=== PATIENT | male | born 1980 | race African-American/Black ===

== ENCOUNTER 2021-02-16 18:57 | Emergency (ER) | payer SELFPAY ==
[2021-02-16] MEDS ORDERED: LIDOCAINE 1% MPF 5 ML VIAL ONE (21:33)
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
[2021-02-16 22:29] VITALS: BP 149/84; TEMP 98.2; O2SAT 98
== END 2021-02-16 22:08 | disposition home or self-care (01) ==
LOC: ER 18:57
PROC: 0JQG0ZZ Repair Right Lower Arm Subcutaneous Tissue and Fascia, Open Approach (ICD-10-PCS; principal; 2021-02-16)
DX: S51.811A Laceration without foreign body of right forearm, initial encounter (principal); W45.8XXA Other foreign body or object entering through skin, initial encounter
CPT/HCPCS: 99283

== ENCOUNTER 2022-04-19 17:46 | Emergency (ER) | payer OTHER, SELFPAY ==
[2022-04-19] MEDS ORDERED: NA CHLORIDE 0.9% 1,000 ML ONE (18:28)
[2022-04-19 18:36] LABS: Absolute Lymphocytes (CBC) 1.1 K/uL (0.7-4.9); Hematocrit 41.7 % (39.6-49.0); Lymphocytes % 21.9 % (15.3-44.8); MCV 90.3 fL (80-100); MPV 7.8 fL (7.6-11.3); RBC Red Blood Cell Count 4.62 M/uL (4.33-5.43)
[2022-04-19 18:41] LABS: Protime INR 0.96
[2022-04-19 18:53] LABS: BUN Blood Urea Nitrogen 10 mg/dL (7-18); Bicarbonate 27 mmol/L (21-32); Glomerular Filtration Rate 113 ml/min (=/>90); Glucose Level 102 mg/dL (74-106); Potassium 3.4 mmol/L (3.5-5.1); Sodium Level 140 mmol/L (136-145)
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
[2022-04-19] MEDS ORDERED: LEVETIRACETAM 500 MG/5 ML VIAL IV ONE (20:07)
[2022-04-19] MEDS ORDERED: ONDANSETRON 4 MG/2 ML VIAL ONE (20:08)
[2022-04-19] MEDS ORDERED: NA CHLORIDE 0.9% 100 ML ONE (20:08)
[2022-04-19] MEDS ORDERED: TETANUS & DIPHTHERIA TOX,ADULT 0.5 ML VIAL ONE (20:08)
[2022-04-19] MEDS ORDERED: FENTANYL CITR 100 MCG/2 ML ONE (20:08)
[2022-04-20 00:47] VITALS: TEMP 98
[2022-04-20 00:57] VITALS: BP 150/83; O2SAT 100
== END 2022-04-19 21:36 | disposition short-term general hospital (02) ==
LOC: ER 17:46
DX: S06.5X0A Traumatic subdural hemorrhage without loss of consciousness, initial encounter (principal); S01.01XA Laceration without foreign body of scalp, initial encounter; V49.59XA Passenger injured in collision with other motor vehicles in traffic accident, initial encounter; Z23 Encounter for immunization
CPT/HCPCS: 85025; 80048; 36415; 80320; 86900; 86850; 80329 ×2; 85610; 86901; 85730; 70450; 72125; 71260; 74177; 71045; 72170; 90714; Q9967; J3010; J1953; J7030; J2405; 90471; 96361; 96365; 96366; 96375; 99285